=== PATIENT | male | born 1985 | race Caucasian/White ===

== ENCOUNTER 2016-09-08 21:13 | Emergency (ER) | payer OTHER ==
--- NOTE | 2016-09-08 21:23 | UCPHY ---
H & P Patient Type: New HPI/ROS: HPI CHIEF COMPLAINT: Cough, bronchitis, ear pain, sore throat HISTORY OF PRESENT ILLNESS: This patient very pleasant 31-year-old male, no significant medical surgical history does smoke tobacco half pack per day, presents to the urgent care with 3-4 days of worsening bronchitic sounding cough productive sputum yellow common chills. Sore throat. No vomiting no diarrhea no chest pain no shortness of breath no fever over 100.0. States he continues to have a dry hacking cough at times does have yellow sputum. Past Medical History: No significant medical history Past Surgical History: No significant surgical history Social History: daily tobacco use half a pack, denies drugs, alcohol Family History: noncontributory ROS REVIEW OF SYSTEMS: A comprehensive 10 point review of systems is otherwise negative aside from elements mentioned in the history of present illness. Exam Constitutional appears well nontoxic triage nursing summary reviewed, vital signs reviewed, awake/alert. Eyes normal conjunctivae and sclera, EOMI, PERRLA. HENT bilateral TMs are erythematous and disc bulge, normal inspection, atraumatic, moist mucus membranes, no epistaxis, neck supple/ no meningismus, no raccoon eyes. Respiratory bronchitic sounding cough, otherwise clear lungs, no wheezing, no rhonchi, no crackles, normal breath sounds, no respiratory distress, no wheezing. Cardiovascular rate normal, regular rhythm, no murmur, no edema, distal pulses normal. Gastrointestinal soft, non-tender, no rebound, no guarding, normal bowel sounds, no distension, no pulsatile mass. Genitourinary no CVA tenderness. Musculoskeletal no midline vertebral tenderness, full range of motion, no calf swelling, no tenderness of extremities, no meningismus, good pulses, neurovascularly intact. Skin pink, warm, & dry, no rash, skin atraumatic. Neurologic awake, alert and oriented x 3, AAOx3, moves all 4 extremities equally, motor intact, sensory intact, CN II-XII intact, normal cerebellar, normal vision, normal speech. Psychiatric normal mood/affect. Heme/Lymph/Immune no lymphadenopathy. Differential Diagnosis: includes but is not limited to in a particular order, upper respiratory tract infection, viral syndrome, bronchitis, viral pneumonia, bacterial pneumonia, tobacco use Medical Decision Making: this patient appears well nontoxic no acute distress. No hypoxia no fever. Has a bronchitic sounding cough on exam bilateral TMs are erythematous with disc bulge consistent with otitis media. Patient is a smoker most likely cause of bronchitic sounding cough is tobacco use with overlying viral illness. Recommend albuterol inhaler, guaifenesin, prednisone burst 5 days, azithromycin. Refrain from smoking drink lots of fluids keep the fever down and discomfort Tylenol Motrin. He understands. Also understands strict return precautions return to the urgent care or emergency room if develops worsening symptoms high fever, vomiting shortness of breath pain. 1st dose of azithromycin given the emergency room as well as prednisone, albuterol take-home pack. Prescription given for azithromycin prednisone guaifenesin. Source: Patient - Family History Significant Family History: No pertinent family hx Constitutional: Initial Vital Signs Temperature (C) 37 C 09/08/16 21:22 Heart Rate 80 09/08/16 21:22 Respiratory Rate 16 09/08/16 21:22 Blood Pressure 118/87 H 09/08/16 21:22 O2 Sat (%) 96 09/08/16 21:22 O2 Delivery Mode Room Air Allergies/Adverse Reactions: No Known Allergies Allergy (Verified 09/08/16 21:23) Home Medications: Medication Instructions Recorded No Medications [NO HOME 1 ea [facility] [place] 02/17/11 MEDICATIONS] AZITHROMYCIN [Z-PACK] 250 mg PO DAILY #6 tab 09/08/16 Guaifenesin [Guaifenesin ER] 600 mg PO BID #14 tab.er.12h 09/08/16 predniSONE 60 mg PO DAILY #15 tab 09/08/16 Departure - Departure Disposition: Home, Routine, Self-Care Clinical Impression: Bronchitis Condition: Good Instructions: Acute Bronchitis (ED) Additional Instructions: 1. Make sure to drink lots of fluids. 2. stay well-hydrated. 3.Do not smoke. 4.Return to the urgent care or emergency room if develops worsening symptoms includes high fever, vomiting shortness of breath. Referrals: NONE *PRIMARY CARE P,. [Primary Care Provider] - As per Instructions Prescriptions: AZITHROMYCIN [Z-PACK] 250 mg PO DAILY #6 tab Guaifenesin [Guaifenesin ER] 600 mg PO BID #14 tab.er.12h predniSONE 60 mg PO DAILY #15 tab - PQRS PQRS Measurement: n/a
[2016-09-08 21:24] VITALS: BP 118/87; PULSE 80; RESP 16; TEMP 98.6; O2SAT 96
[2016-09-08] MEDS ORDERED: predniSONE 20 MG TAB PO ONE (21:29)
[2016-09-08] MEDS ORDERED: AZITHROMYCIN 250 MG TAB PO ONE (21:29)
[2016-09-08] MEDS ORDERED: ALBUTEROL INH PREPACK MDI TAKEHOME ONE (21:29)
== END 2016-09-08 21:42 | disposition home or self-care (01) ==
LOC: CED 21:13
DX: J20.9 Acute bronchitis, unspecified (principal); H92.09 Otalgia, unspecified ear; Z72.0 Tobacco use
CPT/HCPCS: 99204-PO; G0463-PO